=== PATIENT | female | born 1950 | race Caucasian/White ===

== ENCOUNTER 2022-01-19 08:34 | Day surgery (SDC) | payer OTHER ==
[2022-01-18 12:35] VITALS: BMI 30.9
[~2022-01-19 08:34] MED LIST: Activase 2 MG VIAL CATH SCH; EPINEPHrine 0.3 MG in Ophthalmic Irrigation Solution 500 ML IRR SCH; Fentanyl 250 MCG/5 ML VIAL ONE; Midazolam HCl 2 mg/2 ml Vial ONE
[2022-01-19] MEDS ORDERED: Phenylephrine 2.5% Ophth Soln 5 ML BOT ONE (09:01)
[2022-01-19] MEDS ORDERED: Cyclopentolate 1% Opth Drop 2 ML BOT ONE (09:01)
[2022-01-19] MEDS ORDERED: Bupivacaine 0.75% 10 ML VIAL ONE (11:01)
[2022-01-19] MEDS ORDERED: Lidocaine 4% PF 5 ML AMP ONE (11:01)
[2022-01-19] MEDS ORDERED: Lidocaine 1% PF 5 ML VIAL ONE (11:01)
[2022-01-19] MEDS ORDERED: CEFAZOLIN 1 GM VIAL ONE (11:01)
[2022-01-19] MEDS ORDERED: Triamcinolone 40 MG/ML VIAL ONE (11:01)
[2022-01-19] MEDS ORDERED: Maxitrol 0.1% Opth Oint 3.5 GM TUBE ONE (11:01)
[2022-01-19] MEDS ORDERED: ePHEDrine 50 MG/ML VIAL ONE (11:06)
[2022-01-19] MEDS ORDERED: Ondansetron PF 4 MG/2 ML Vial ONE (11:24)
== END 2022-01-19 12:46 | disposition home or self-care (01) ==
LOC: SDC 08:34
PROVIDERS: ATTEND Ophthalmology Retina Specialist
PROC: 3E0C3GC Introduction of Other Therapeutic Substance into Eye, Percutaneous Approach (ICD-10-PCS; principal; 2022-01-19)
PROC: 08T43ZZ Resection of Right Vitreous, Percutaneous Approach (ICD-10-PCS; principal; 2022-01-19)
DX: H35.61 Retinal hemorrhage, right eye (principal); E78.5 Hyperlipidemia, unspecified; I10 Essential (primary) hypertension; E03.9 Hypothyroidism, unspecified; K31.84 Gastroparesis; Z79.899 Other long term (current) drug therapy; Z88.4 Allergy status to anesthetic agent; Z88.5 Allergy status to narcotic agent; Z88.8 Allergy status to other drugs, medicaments and biological substances
CPT/HCPCS: 67025; J0171; J0690; J2250; J2405; J2997; J3010; J3301; J3490